=== PATIENT | male | born 1955 | race Caucasian/White ===

== ENCOUNTER 2024-09-20 06:22 | Day surgery (SDC) | payer MEDICARE, OTHER ==
[2024-09-20] MEDS: Lactated Ringers 1,000 ML IV SCH (07:16)
[2024-09-20] MEDS ORDERED: fentaNYL 100 MCG/2 ML SDV ONE (07:28)
[2024-09-20] MEDS ORDERED: Propofol 200 MG/20 ML SDV ONE (07:29)
== END 2024-09-20 08:55 | disposition home or self-care (01) ==
LOC: JP.SDS 06:22
PROVIDERS: ATTEND Family Medicine
DX: Z12.11 Encounter for screening for malignant neoplasm of colon (principal); K57.30 Diverticulosis of large intestine without perforation or abscess without bleeding; K64.8 Other hemorrhoids; I10 Essential (primary) hypertension; I25.10 Atherosclerotic heart disease of native coronary artery without angina pectoris; E11.9 Type 2 diabetes mellitus without complications; Z95.5 Presence of coronary angioplasty implant and graft
CPT/HCPCS: G0121; J2704; J3010; J7120; 43235